=== PATIENT | female | born 1955 | race Caucasian/White ===

== ENCOUNTER 2019-11-12 07:43 | Inpatient (IN) | payer OTHER, MEDICARE ==
[~2019-11-12] VITALS: Ht 160 cm; Wt 93.6 kg
[2019-11-12 07:52] VITALS: Ht 160 cm; Wt 93.6 kg
[2019-11-12 08:58] LABS: BASOPHIL % 0.1 % (0-2); PLATELET COUNT 352 x10^3mcL (130-400)
[2019-11-12 08:59] LABS: RED CELL DISTRIBUTION WIDTH 18.2 % (11.5-14.5)
[2019-11-12 09:04] LABS: CALCIUM 7.8 mg/dL (8.5-10.1); CARBON DIOXIDE 33.2 mmol/L (21-32); CREATININE SERUM 3.6 mg/dL (0.6-1.0)
[2019-11-12 09:07] LABS: BILIRUBIN TOTAL 0.8 mg/dL (0.20-1.00)
[2019-11-12 09:12] LABS: ALBUMIN 2.1 g/dL (3.4-5.0); TOTAL PROTEIN, SERUM 6.1 g/dL (6.4-8.2)
[2019-11-12 12:25] LABS: AMPHETAMINE QUAL UR NONE DETECTED (See below)
[2019-11-12 12:50] LABS: C REACTIVE PROTEIN 13.6 mg/dL (<=0.9)
[2019-11-12] MEDS ORDERED: RENA-VITE1 TAB PO (13:40)
[2019-11-12] MEDS ORDERED: ARGINAID POWDE1 EACH PO (13:41)
[2019-11-12] MEDS ORDERED: DULOXETINE HYDR30 MG PO (13:42)
[2019-11-12] MEDS ORDERED: ATIVAN1 MG PO (13:42)
[2019-11-12] MEDS ORDERED: ASPIRIN PO (13:43)
[2019-11-12] MEDS ORDERED: DIPYRIDAMOLE PO (13:43)
[2019-11-12] MEDS ORDERED: NOR10 PO (13:43)
[2019-11-12] MEDS ORDERED: CHILDREN'S PEP400 MG (13:44)
[2019-11-12] MEDS ORDERED: FENOFIBRATE50 MG PO (13:44)
[2019-11-12] MEDS ORDERED: ATORVASTATIN CA80 M1 PO (13:44)
[2019-11-12] MEDS ORDERED: LASIX20 MG PO (13:45)
[2019-11-12] MEDS ORDERED: MEMANTINE HCL5 MG PO (13:45)
[2019-11-12] MEDS ORDERED: QVAR REDIHALE10.6 G1 IH (13:46)
[2019-11-12 14:16] LABS: UA SPECIFIC GRAVITY 1.015 (1.005-1.035); microscopic required? YES; urine erythrocyte 1+ (NEGATIVE)
[2019-11-12 15:06] VITALS: BP 155/52
[2019-11-12 17:07] VITALS: BP 150/68
[2019-11-12 20:43] VITALS: BP 154/63
[2019-11-13 04:24] VITALS: BP 160/60
[2019-11-13 07:17] LABS: BASOPHIL % 0.4 % (0-2); PLATELET COUNT 385 x10^3mcL (130-400)
[2019-11-13 07:39] LABS: RED CELL DISTRIBUTION WIDTH 18.9 % (11.5-14.5)
[2019-11-13 07:54] LABS: CALCIUM 8.1 mg/dL (8.5-10.1); CARBON DIOXIDE 34.2 mmol/L (21-32); CREATININE SERUM 2.5 mg/dL (0.6-1.0); MAGNESIUM 1.9 mg/dL (1.8-2.4); POTASSIUM SERUM 3.4 mmol/L (3.5-5.1)
[2019-11-13 08:11] LABS: CHOLESTEROL/HDL RATIO 3.2
[2019-11-13 08:30] VITALS: BP 173/77
[2019-11-13 12:35] VITALS: BP 155/56
[2019-11-13 17:30] VITALS: BP 142/64
[2019-11-13 21:00] VITALS: BP 169/73
[2019-11-13 22:51] VITALS: BP 159/66
[2019-11-14 05:10] VITALS: BP 171/68
[2019-11-14 06:42] VITALS: BP 157/66
[2019-11-14 09:07] VITALS: BP 174/71
[2019-11-14 12:45] LABS: BASOPHIL % 0.4 % (0-2)
[2019-11-14 12:50] LABS: PLATELET COUNT 411 x10^3mcL (130-400); RED CELL DISTRIBUTION WIDTH 18.4 % (11.5-14.5)
[2019-11-14 13:00] VITALS: BP 106/46
[2019-11-14 13:02] LABS: CALCIUM 8.4 mg/dL (8.5-10.1); CARBON DIOXIDE 31.2 mmol/L (21-32); CREATININE SERUM 1.5 mg/dL (0.6-1.0); MAGNESIUM 1.6 mg/dL (1.8-2.4)
[2019-11-14 13:08] LABS: CHOLESTEROL/HDL RATIO 3.3
[2019-11-14 13:10] LABS: POTASSIUM SERUM 2.9 mmol/L (3.5-5.1)
[2019-11-14 17:00] VITALS: BP 128/49
[2019-11-14 20:03] VITALS: BP 134/45
[2019-11-15 05:35] VITALS: BP 139/55
[2019-11-15 06:41] LABS: BASOPHIL % 0.7 % (0-2)
[2019-11-15 06:49] LABS: PLATELET COUNT 420 x10^3mcL (130-400); RED CELL DISTRIBUTION WIDTH 18.7 % (11.5-14.5)
[2019-11-15 06:54] LABS: CALCIUM 8.1 mg/dL (8.5-10.1); CARBON DIOXIDE 27.3 mmol/L (21-32); CREATININE SERUM 3.1 mg/dL (0.6-1.0); MAGNESIUM 1.7 mg/dL (1.8-2.4); PHOSPHOROUS 2.1 mg/dL (2.5-4.9); POTASSIUM SERUM 3.9 mmol/L (3.5-5.1)
[2019-11-15 07:01] LABS: CHOLESTEROL/HDL RATIO 3.3
[2019-11-15 08:31] VITALS: BP 153/54
[2019-11-15 17:45] VITALS: BP 147/50
[2019-11-15 20:28] VITALS: BP 143/47
[2019-11-16 05:40] VITALS: BP 149/74
[2019-11-16 06:37] LABS: BASOPHIL % 0.8 % (0-2)
[2019-11-16 06:51] LABS: PLATELET COUNT 412 x10^3mcL (130-400); RED CELL DISTRIBUTION WIDTH 18.1 % (11.5-14.5)
[2019-11-16 07:27] LABS: CALCIUM 8.6 mg/dL (8.5-10.1); CARBON DIOXIDE 30.1 mmol/L (21-32); MAGNESIUM 1.8 mg/dL (1.8-2.4); POTASSIUM SERUM 3.9 mmol/L (3.5-5.1)
[2019-11-16 08:45] VITALS: BP 171/49
[2019-11-16 17:32] VITALS: BP 118/53
[2019-11-16 20:33] VITALS: BP 144/47
[2019-11-17 05:43] VITALS: BP 150/57
[2019-11-17 08:23] VITALS: BP 132/55
[2019-11-17 12:11] VITALS: BP 152/56
[2019-11-17 16:10] VITALS: BP 146/45
[2019-11-17 21:00] VITALS: BP 146/63
[2019-11-18 06:22] VITALS: BP 130/56
[2019-11-18 07:31] LABS: BASOPHIL % 0.4 % (0-2); PLATELET COUNT 423 x10^3mcL (130-400); RED CELL DISTRIBUTION WIDTH 18.3 % (11.5-14.5)
[2019-11-18 07:32] LABS: CALCIUM 8.4 mg/dL (8.5-10.1); MAGNESIUM 1.6 mg/dL (1.8-2.4); PHOSPHOROUS 2.6 mg/dL (2.5-4.9)
[2019-11-18 07:36] LABS: CREATININE SERUM 4.4 mg/dL (0.6-1.0); POTASSIUM SERUM 2.9 mmol/L (3.5-5.1)
[2019-11-18 09:09] VITALS: BP 151/38
[2019-11-18 12:22] VITALS: BP 147/60
[2019-11-18 16:29] VITALS: BP 152/52
[2019-11-18 20:05] VITALS: BP 129/66
[2019-11-19 05:46] VITALS: BP 124/51
[2019-11-19 06:37] LABS: BASOPHIL % 0.3 % (0-2)
[2019-11-19 07:03] LABS: CALCIUM 9.5 mg/dL (8.5-10.1); CARBON DIOXIDE 35.5 mmol/L (21-32); CREATININE SERUM 2.9 mg/dL (0.6-1.0); POTASSIUM SERUM 3.1 mmol/L (3.5-5.1)
[2019-11-19 08:12] LABS: PLATELET COUNT 421 x10^3mcL (130-400); RED CELL DISTRIBUTION WIDTH 17.6 % (11.5-14.5)
[2019-11-19 20:34] VITALS: BP 122/74
[2019-11-19 20:37] VITALS: BP 111/50
[2019-11-20 05:38] VITALS: BP 137/64
[2019-11-20 08:58] VITALS: BP 118/44
[2019-11-20 09:19] LABS: CALCIUM 9.2 mg/dL (8.5-10.1); CARBON DIOXIDE 29.9 mmol/L (21-32); POTASSIUM SERUM 3.8 mmol/L (3.5-5.1)
[2019-11-20 09:26] LABS: CREATININE SERUM 4.1 mg/dL (0.6-1.0)
[2019-11-20 09:28] LABS: BASOPHIL % 0.7 % (0-2); PLATELET COUNT 420 x10^3mcL (130-400); RED CELL DISTRIBUTION WIDTH 18.1 % (11.5-14.5)
[2019-11-20 12:51] VITALS: BP 104/47
[2019-11-20 17:22] VITALS: BP 111/48
[2019-11-20 21:55] VITALS: BP 113/38
[2019-11-21 05:51] VITALS: BP 118/48
[2019-11-21 09:38] VITALS: BP 106/45
[2019-11-21 13:27] VITALS: BP 108/45
[2019-11-21 18:00] VITALS: BP 109/46
[2019-11-21 21:46] VITALS: BP 138/60
[2019-11-22 05:50] VITALS: BP 140/62
[2019-11-22 07:10] LABS: CALCIUM 8.6 mg/dL (8.5-10.1); CARBON DIOXIDE 30.9 mmol/L (21-32); CREATININE SERUM 3.4 mg/dL (0.6-1.0); MAGNESIUM 2.1 mg/dL (1.8-2.4); PHOSPHOROUS 2.7 mg/dL (2.5-4.9); POTASSIUM SERUM 4.1 mmol/L (3.5-5.1)
[2019-11-22 07:11] LABS: BASOPHIL % 0.3 % (0-2); PLATELET COUNT 458 x10^3mcL (130-400); RED CELL DISTRIBUTION WIDTH 17.3 % (11.5-14.5)
[2019-11-22 08:00] VITALS: BP 129/66
[2019-11-22] MEDS ORDERED: A200/25 PO (11:34)
[2019-11-22] MEDS ORDERED: COR6 PO (11:34)
[2019-11-22] MEDS ORDERED: DULOXETINE HYDR30 MG PO (11:35)
[2019-11-22] MEDS ORDERED: TRA50 PO (11:35)
[2019-11-22] MEDS ORDERED: QUETIAPINE FUMA25 M1 PO (11:35)
[2019-11-22 11:36] VITALS: BP 116/60
[2019-11-22] MEDS ORDERED: MEMANTINE HCL10 MG PO (11:36)
[2019-11-22 13:08] VITALS: BP 116/60
[2019-11-22 16:21] VITALS: BP 120/51
[2019-11-22 20:13] VITALS: BP 141/54
[2019-11-23 05:44] VITALS: BP 110/42
[2019-11-23 08:53] VITALS: BP 135/54
[2019-11-23 13:02] VITALS: BP 93/63
[2019-11-23 16:14] VITALS: BP 107/45
[2019-11-23 20:01] VITALS: BP 127/58
[2019-11-24 05:03] VITALS: BP 115/51
[2019-11-24 07:41] LABS: BASOPHIL % 0.6 % (0-2)
[2019-11-24 07:55] LABS: PLATELET COUNT 454 x10^3mcL (130-400); RED CELL DISTRIBUTION WIDTH 17.8 % (11.5-14.5)
[2019-11-24 08:11] LABS: CALCIUM 8.4 mg/dL (8.5-10.1); CARBON DIOXIDE 29.4 mmol/L (21-32); CREATININE SERUM 3.2 mg/dL (0.6-1.0); PHOSPHOROUS 3.2 mg/dL (2.5-4.9); POTASSIUM SERUM 3.1 mmol/L (3.5-5.1)
[2019-11-24 09:22] VITALS: BP 135/52
[2019-11-24 13:24] VITALS: BP 108/41
[2019-11-24 17:29] VITALS: BP 123/45
[2019-11-24 21:24] VITALS: BP 124/52
[2019-11-25 04:53] VITALS: BP 132/60
[2019-11-25 06:36] LABS: BASOPHIL % 0.4 % (0-2)
[2019-11-25 06:47] LABS: PLATELET COUNT 456 x10^3mcL (130-400); RED CELL DISTRIBUTION WIDTH 17.5 % (11.5-14.5)
[2019-11-25 06:54] LABS: CALCIUM 8.7 mg/dL (8.5-10.1); CARBON DIOXIDE 31.9 mmol/L (21-32); MAGNESIUM 2.1 mg/dL (1.8-2.4); PHOSPHOROUS 3.9 mg/dL (2.5-4.9); POTASSIUM SERUM 3.3 mmol/L (3.5-5.1)
[2019-11-25 07:08] LABS: CREATININE SERUM 4.1 mg/dL (0.6-1.0)
[2019-11-25 17:15] VITALS: BP 132/69
[2019-11-25 20:30] VITALS: BP 154/68
[2019-11-26 04:30] VITALS: BP 118/52
[2019-11-26 07:24] LABS: BASOPHIL % 0.3 % (0-2)
[2019-11-26 07:35] LABS: CALCIUM 8.7 mg/dL (8.5-10.1); CARBON DIOXIDE 31.7 mmol/L (21-32); CREATININE SERUM 3.5 mg/dL (0.6-1.0); PHOSPHOROUS 2.8 mg/dL (2.5-4.9)
[2019-11-26 07:52] LABS: PLATELET COUNT 478 x10^3mcL (130-400); RED CELL DISTRIBUTION WIDTH 17.4 % (11.5-14.5)
[2019-11-26 08:30] VITALS: BP 130/53
[2019-11-26 16:37] VITALS: BP 150/59
[2019-11-26 20:47] VITALS: BP 153/57
[2019-11-27 05:20] VITALS: BP 142/49
[2019-11-27 07:49] LABS: CARBON DIOXIDE 30.1 mmol/L (21-32); MAGNESIUM 2.2 mg/dL (1.8-2.4); PHOSPHOROUS 3.2 mg/dL (2.5-4.9); POTASSIUM SERUM 3.3 mmol/L (3.5-5.1)
[2019-11-27 07:59] LABS: CREATININE SERUM 4.4 mg/dL (0.6-1.0)
[2019-11-27 08:13] LABS: BASOPHIL % 0.3 % (0-2)
[2019-11-27 08:16] LABS: PLATELET COUNT 457 x10^3mcL (130-400); RED CELL DISTRIBUTION WIDTH 17.7 % (11.5-14.5)
[2019-11-27 09:11] VITALS: BP 124/54
[2019-11-27 21:40] VITALS: BP 132/53
[2019-11-28 05:45] VITALS: BP 117/48
[2019-11-28 08:59] VITALS: BP 136/55
[2019-11-28 15:30] VITALS: BP 158/59
[2019-11-28 20:47] VITALS: BP 156/60
[2019-11-29 06:05] VITALS: BP 130/76
[2019-11-29 09:01] VITALS: BP 139/52
[2019-11-29 13:33] VITALS: BP 115/52
[2019-11-29 17:39] VITALS: BP 136/57
[2019-11-29 20:40] VITALS: BP 124/51
[2019-11-30 06:05] VITALS: BP 162/53
[2019-11-30 06:34] LABS: BASOPHIL % 0.4 % (0-2); PLATELET COUNT 397 x10^3mcL (130-400)
[2019-11-30 06:42] LABS: RED CELL DISTRIBUTION WIDTH 18.7 % (11.5-14.5)
[2019-11-30 07:01] LABS: CALCIUM 9.3 mg/dL (8.5-10.1); CARBON DIOXIDE 27.7 mmol/L (21-32); POTASSIUM SERUM 3.7 mmol/L (3.5-5.1)
[2019-11-30 08:03] LABS: CREATININE SERUM 4.5 mg/dL (0.6-1.0)
[2019-11-30 09:11] VITALS: BP 146/53
[2019-11-30 17:02] VITALS: BP 126/53
[2019-11-30 20:10] VITALS: BP 128/52
[2019-12-01 06:53] VITALS: BP 146/62
[2019-12-01 08:33] VITALS: BP 129/66
[2019-12-01 12:02] VITALS: BP 145/63
[2019-12-01 16:59] VITALS: BP 128/60
[2019-12-01 20:34] VITALS: BP 151/55
[2019-12-02 05:27] VITALS: BP 166/64
[2019-12-02 08:35] VITALS: BP 148/63
[2019-12-02 13:25] VITALS: BP 135/60
[2019-12-02 16:38] VITALS: BP 126/60
[2019-12-02 20:16] VITALS: BP 121/54
[2019-12-03 05:36] VITALS: BP 129/65
[2019-12-03 08:34] VITALS: BP 150/69
[2019-12-03 12:12] VITALS: BP 148/64
[2019-12-03 16:26] VITALS: BP 117/57
[2019-12-03 20:06] VITALS: BP 153/63
[2019-12-04 05:56] VITALS: BP 153/37
[2019-12-04 07:36] LABS: BASOPHIL % 0.4 % (0-2); PLATELET COUNT 309 x10^3mcL (130-400)
[2019-12-04 08:01] LABS: RED CELL DISTRIBUTION WIDTH 19.8 % (11.5-14.5)
[2019-12-04 08:06] VITALS: BP 143/76
[2019-12-04 08:14] LABS: CALCIUM 9.6 mg/dL (8.5-10.1); CARBON DIOXIDE 28.3 mmol/L (21-32); CREATININE SERUM 3.6 mg/dL (0.6-1.0); POTASSIUM SERUM 4.2 mmol/L (3.5-5.1)
[2019-12-04 11:58] VITALS: BP 145/67
[2019-12-04 16:28] VITALS: BP 161/50
[2019-12-04 21:42] VITALS: BP 150/58
[2019-12-05 06:11] VITALS: BP 147/66
[2019-12-05 08:30] VITALS: BP 156/84
[2019-12-05 12:46] VITALS: BP 137/51
[2019-12-05 17:08] VITALS: BP 134/56
[2019-12-05 21:10] VITALS: BP 156/55
[2019-12-06 06:05] VITALS: BP 138/60
[2019-12-06 06:28] LABS: PLATELET COUNT 291 x10^3mcL (130-400)
[2019-12-06 06:34] LABS: RED CELL DISTRIBUTION WIDTH 20.7 % (11.5-14.5)
[2019-12-06 06:46] LABS: CALCIUM 9.4 mg/dL (8.5-10.1); CARBON DIOXIDE 23.8 mmol/L (21-32); CREATININE SERUM 3.2 mg/dL (0.6-1.0); PHOSPHOROUS 2.7 mg/dL (2.5-4.9); POTASSIUM SERUM 3.2 mmol/L (3.5-5.1)
[2019-12-06 06:51] LABS: ALBUMIN 2.1 g/dL (3.4-5.0)
[2019-12-06 07:43] VITALS: BP 164/63
[2019-12-06 11:40] VITALS: BP 137/60
[2019-12-06 15:55] VITALS: BP 146/61
[2019-12-06 20:40] VITALS: BP 141/54
[2019-12-06 20:50] VITALS: BP 136/68
[2019-12-07 06:00] VITALS: BP 116/68
[2019-12-07 07:49] LABS: CALCIUM 9.3 mg/dL (8.5-10.1); CREATININE SERUM 3.6 mg/dL (0.6-1.0); PHOSPHOROUS 3.5 mg/dL (2.5-4.9); POTASSIUM SERUM 3.7 mmol/L (3.5-5.1)
[2019-12-07 07:51] LABS: ALBUMIN 2.1 g/dL (3.4-5.0)
[2019-12-07 08:03] VITALS: BP 167/69
[2019-12-07 11:51] VITALS: BP 123/48
[2019-12-07 16:20] VITALS: BP 127/45
[2019-12-07 20:10] VITALS: BP 146/55
[2019-12-08] VITALS: BP 140/72
[2019-12-08 05:17] VITALS: BP 137/57
[2019-12-08 08:04] LABS: CALCIUM 8.9 mg/dL (8.5-10.1); CARBON DIOXIDE 32.1 mmol/L (21-32); CREATININE SERUM 3.2 mg/dL (0.6-1.0); PHOSPHOROUS 2.7 mg/dL (2.5-4.9); POTASSIUM SERUM 3.4 mmol/L (3.5-5.1)
[2019-12-08 08:29] LABS: ALBUMIN 2.4 g/dL (3.4-5.0)
[2019-12-08 09:12] VITALS: BP 155/67
[2019-12-08 13:11] VITALS: BP 170/81
[2019-12-08 17:50] VITALS: BP 141/61
[2019-12-08 20:05] VITALS: BP 151/66
[2019-12-09 05:10] VITALS: BP 150/62
[2019-12-09 07:19] LABS: CALCIUM 9.2 mg/dL (8.5-10.1); CARBON DIOXIDE 30.2 mmol/L (21-32); CREATININE SERUM 3.9 mg/dL (0.6-1.0); PHOSPHOROUS 4.2 mg/dL (2.5-4.9); POTASSIUM SERUM 4.2 mmol/L (3.5-5.1)
[2019-12-09 07:20] LABS: ALBUMIN 2.4 g/dL (3.4-5.0)
[2019-12-09 09:38] VITALS: BP 109/52
[2019-12-09 13:41] VITALS: BP 136/42
[2019-12-09 18:14] VITALS: BP 144/55
[2019-12-09 21:05] VITALS: BP 145/53
[2019-12-10 06:18] VITALS: BP 142/73
[2019-12-10 07:26] LABS: CALCIUM 9.2 mg/dL (8.5-10.1); CARBON DIOXIDE 27.2 mmol/L (21-32); CREATININE SERUM 3.3 mg/dL (0.6-1.0); PHOSPHOROUS 2.9 mg/dL (2.5-4.9); POTASSIUM SERUM 3.6 mmol/L (3.5-5.1)
[2019-12-10 07:29] LABS: ALBUMIN 2.3 g/dL (3.4-5.0)
[2019-12-10 08:39] VITALS: BP 118/42
[2019-12-10 20:10] VITALS: BP 143/69
[2019-12-11] VITALS: BP 116/70
[2019-12-11 05:10] VITALS: BP 133/50
[2019-12-11 09:22] VITALS: BP 124/46
[2019-12-11 14:03] VITALS: BP 146/58
[2019-12-11 18:20] VITALS: BP 127/64
[2019-12-11 20:28] VITALS: BP 147/50
[2019-12-12 05:45] VITALS: BP 116/50
[2019-12-12 08:24] LABS: CALCIUM 9.2 mg/dL (8.5-10.1); CARBON DIOXIDE 26.3 mmol/L (21-32); PHOSPHOROUS 4.1 mg/dL (2.5-4.9); POTASSIUM SERUM 3.7 mmol/L (3.5-5.1)
[2019-12-12 08:29] VITALS: BP 163/63
[2019-12-12 08:34] LABS: ALBUMIN 2.2 g/dL (3.4-5.0); CREATININE SERUM 4.2 mg/dL (0.6-1.0)
[2019-12-12 12:15] VITALS: BP 135/52
[2019-12-12 16:20] VITALS: BP 117/63
[2019-12-12 19:21] VITALS: BP 147/57
[2019-12-13 05:40] VITALS: BP 109/55
[2019-12-13 08:31] VITALS: BP 128/57
[2019-12-13 12:32] VITALS: BP 134/53
[2019-12-13 16:20] VITALS: BP 123/57
[2019-12-13 21:05] VITALS: BP 123/61
[2019-12-14 06:03] VITALS: BP 142/63
[2019-12-14 07:36] LABS: BASOPHIL % 0.4 % (0-2); PLATELET COUNT 329 x10^3mcL (130-400)
[2019-12-14 08:13] LABS: CALCIUM 9.3 mg/dL (8.5-10.1); POTASSIUM SERUM 4.1 mmol/L (3.5-5.1)
[2019-12-14 08:18] VITALS: BP 146/54
[2019-12-14 08:22] LABS: CREATININE SERUM 4.3 mg/dL (0.6-1.0)
[2019-12-14 17:05] VITALS: BP 158/56
[2019-12-14 21:34] VITALS: BP 144/64
[2019-12-15 05:41] VITALS: BP 139/55
[2019-12-15 07:54] VITALS: BP 115/49
[2019-12-15 09:16] VITALS: BP 115/49
[2019-12-15] MEDS ORDERED: METOPROLOL SUCC25 M2 PO (09:44)
[2019-12-15 12:04] VITALS: BP 126/36
== END 2019-12-15 13:14 | disposition hospice, home (50) | DRG 133 ==
LOC: ED 07:43 → DU 09:46 → MU 09:46 → DU 14:12 → MU 11-14 16:34
PROVIDERS: Emergency Medicine; Family Medicine; Internal Medicine; Internal Medicine Cardiovascular Disease; Student in an Organized Health Care Education/Training Program; ADMIT Internal Medicine; ATTEND Internal Medicine
PROC: 5A1D70Z Performance of Urinary Filtration, Intermittent, Less than 6 Hours Per Day (ICD-10-PCS; principal; 2019-11-12)
PROC: 5A1D70Z Performance of Urinary Filtration, Intermittent, Less than 6 Hours Per Day (ICD-10-PCS; 2019-11-14)
PROC: 5A1D70Z Performance of Urinary Filtration, Intermittent, Less than 6 Hours Per Day (ICD-10-PCS; 2019-11-16)
PROC: 5A1D70Z Performance of Urinary Filtration, Intermittent, Less than 6 Hours Per Day (ICD-10-PCS; 2019-11-17)
PROC: 5A1D70Z Performance of Urinary Filtration, Intermittent, Less than 6 Hours Per Day (ICD-10-PCS; 2019-11-18)
PROC: 5A1D70Z Performance of Urinary Filtration, Intermittent, Less than 6 Hours Per Day (ICD-10-PCS; 2019-11-21)
PROC: 5A1D70Z Performance of Urinary Filtration, Intermittent, Less than 6 Hours Per Day (ICD-10-PCS; 2019-11-22)
PROC: 5A1D70Z Performance of Urinary Filtration, Intermittent, Less than 6 Hours Per Day (ICD-10-PCS; 2019-11-23)
PROC: 5A1D70Z Performance of Urinary Filtration, Intermittent, Less than 6 Hours Per Day (ICD-10-PCS; 2019-11-25)
PROC: 5A1D70Z Performance of Urinary Filtration, Intermittent, Less than 6 Hours Per Day (ICD-10-PCS; 2019-11-28)
PROC: 5A1D70Z Performance of Urinary Filtration, Intermittent, Less than 6 Hours Per Day (ICD-10-PCS; 2019-11-30)
PROC: 5A1D70Z Performance of Urinary Filtration, Intermittent, Less than 6 Hours Per Day (ICD-10-PCS; 2019-12-02)
PROC: 5A1D70Z Performance of Urinary Filtration, Intermittent, Less than 6 Hours Per Day (ICD-10-PCS; 2019-12-05)
PROC: 5A1D70Z Performance of Urinary Filtration, Intermittent, Less than 6 Hours Per Day (ICD-10-PCS; 2019-12-07)
PROC: 5A1D70Z Performance of Urinary Filtration, Intermittent, Less than 6 Hours Per Day (ICD-10-PCS; 2019-12-09)
PROC: 5A1D70Z Performance of Urinary Filtration, Intermittent, Less than 6 Hours Per Day (ICD-10-PCS; 2019-12-12)
PROC: 5A1D70Z Performance of Urinary Filtration, Intermittent, Less than 6 Hours Per Day (ICD-10-PCS; 2019-12-14)
DX: J96.01 Acute respiratory failure with hypoxia (principal); G93.40 Encephalopathy, unspecified; I13.2 Hypertensive heart and chronic kidney disease with heart failure and with stage 5 chronic kidney disease, or end stage renal disease; J18.9 Pneumonia, unspecified organism; E46 Unspecified protein-calorie malnutrition; E11.22 Type 2 diabetes mellitus with diabetic chronic kidney disease; F03.91 Unspecified dementia, unspecified severity, with behavioral disturbance; I13.0 Hypertensive heart and chronic kidney disease with heart failure and stage 1 through stage 4 chronic kidney disease, or unspecified chronic kidney disease; N18.6 End stage renal disease; J44.9 Chronic obstructive pulmonary disease, unspecified; I50.33 Acute on chronic diastolic (congestive) heart failure; E78.5 Hyperlipidemia, unspecified; Z20.828 Contact with and (suspected) exposure to other viral communicable diseases; F41.9 Anxiety disorder, unspecified; G47.00 Insomnia, unspecified; Z51.5 Encounter for palliative care; D64.9 Anemia, unspecified; E87.6 Hypokalemia; Z68.38 Body mass index [BMI] 38.0-38.9, adult; Z88.8 Allergy status to other drugs, medicaments and biological substances; Z78.1 Physical restraint status
CPT/HCPCS: 36600; 83880; 97110-GP; 97530-GP; G0378; J0360; J0456; J0696; J0885-EC; J1644; J2060; J2405; J2997; J3475; J3480; J7030; J7060; Q0092; U0003-CS